=== PATIENT | female | born 1965 | race Caucasian/White ===

== ENCOUNTER 2018-01-08 08:00 | Outpatient (CLI) | payer OTHER | END 2018-01-08 08:01 | disposition home or self-care (01) | LOC: LAB.R 08:00 | PROVIDERS: ATTEND Physician Assistant Medical | DX: N39.0 Urinary tract infection, site not specified (principal) | CPT/HCPCS: 87086; 87181 ==

== ENCOUNTER 2018-02-11 21:02 | Outpatient (CLI) | payer OTHER ==
--- NOTE | 2018-02-12 11:07 | Ultrasound Report ---
Procedure Date: 02/11/2018 Accession Number: [id number] / [id number] Procedure: US - Retroperitoneal CPT Code: FULL RESULT: EXAM: Retroperitoneal DATE: 02/11/2018 9:38 PM CLINICAL HISTORY: CHRONIC UTI COMPARISON: None. TECHNIQUE: Real-time scanning was performed with static images obtained. FINDINGS: Right Kidney: 9.4 x 4.7 x 4.4 cm. There are small echogenic foci in the right collecting system, measuring 4 mm in the upper pole and 3 mm in the lower pole, suspicious for small calculi. No hydronephrosis. Left Kidney: 10.1 x 4.6 x 4.4 cm. Normal echotexture with no stones, contour-deforming masses, or hydronephrosis.] Bladder: Bilateral jets seen. The prevoid bladder volume was 332 cc. The postvoid bladder volume was 2 cc. IMPRESSION: Possible small right renal calculi. No hydronephrosis. No significant post void residual. RADIA
== END 2018-02-11 21:03 | disposition home or self-care (01) ==
LOC: DI 21:02
PROVIDERS: ATTEND Physician Assistant Medical
DX: N39.0 Urinary tract infection, site not specified (principal)
CPT/HCPCS: 76770

== ENCOUNTER 2018-03-06 08:42 | Outpatient (CLI) | payer OTHER ==
[2018-03-06 09:10] LABS: BASOPHILS % (AUTO) 1.2 %; EOSINOPHILS % (AUTO) 1.3 %; HGB - HEMOGLOBIN 14.1 g/dL (12.0-16.0); LYMPHOCYTES # (AUTO) 1.5 10^3/uL (1.5-3.5); LYMPHOCYTES % (AUTO) 41.7 %; MEAN CORPUSCULAR HEMOGLOBIN 30.5 pg (27.0-31.0); MEAN CORPUSCULAR VOLUME 89.7 fL (81.0-99.0); MEAN PLATELET VOLUME 8.5 fL (7.9-10.8); MONOCYTES # (AUTO) 0.3 10^3/uL (0.0-1.0); MONOCYTES % (AUTO) 9.6 %; NEUTROPHILS # (AUTO) 1.7 10^3/uL (1.5-6.6); NEUTROPHILS % (AUTO) 46.2 %; PLT - PLATELET COUNT 211 10^3/uL (130-450); RED BLOOD COUNT 4.63 10^6/uL (4.20-5.40); RED CELL DISTRIBUTION WIDTH 13.7 % (12.0-15.0); WHITE BLOOD COUNT 3.6 x10^3/uL (4.8-10.8)
[2018-03-06 09:35] LABS: ALBUMIN 4.4 g/dL (3.2-5.5); ALBUMIN/GLOBULIN RATIO 1.5 (1.0-2.2); ALKALINE PHOSPHATASE 51 IU/L (42-121); ALT ALANINE AMINOTRANSFERASE 16 IU/L (10-60); AST ASPARTATE AMINOTRANSFERASE 20 IU/L (10-42); BILIRUBIN,TOTAL 1.2 mg/dL (0.2-1.0); BUN - BLOOD UREA NITROGEN 11 mg/dL (6-20); CARBON DIOXIDE - CO2 26 mmol/L (21-32); CHLORIDE 102 mmol/L (101-111); CHOL/HDL RATIO 2.7 (<4.4); CHOLESTEROL 255 mg/dL; CREATININE 0.7 mg/dL (0.4-1.0); GFR - MDRD 87 (>89); GLUCOSE 104 mg/dL (70-100); HDL CHOLESTEROL 95 mg/dL; LDL CHOLESTEROL,CALCULATED 150 mg/dL; LDL/HDL RATIO 1.6 (<4.4); SODIUM 136 mmol/L (135-145); TOTAL PROTEIN 7.3 g/dL (6.7-8.2); VLDL CHOLESTEROL 10 mg/dL
[2018-03-06 10:12] LABS: CA 125 13.2 U/mL (0.0-35.0)
[2018-03-06 10:16] LABS: THYROID STIMULATING HORMONE 1.2 uIU/mL (0.34-5.60)
[2018-03-07 13:17] LABS: HEPATITIS C ANTIBODY NON-REACTIVE (NON-REACTIVE)
== END 2018-03-06 08:43 | disposition home or self-care (01) ==
LOC: LAB 08:42
PROVIDERS: ATTEND Physician Assistant Medical
DX: Z00.00 Encounter for general adult medical examination without abnormal findings (principal); E55.9 Vitamin D deficiency, unspecified; Z79.899 Other long term (current) drug therapy; Z13.818 Encounter for screening for other digestive system disorders; Z80.3 Family history of malignant neoplasm of breast; R14.0 Abdominal distension (gaseous); R10.9 Unspecified abdominal pain
CPT/HCPCS: 36415; 80053; 80061; 82306; 83721; 84443; 85025; 86304; 86803

== ENCOUNTER 2018-03-07 20:27 | Outpatient (CLI) | payer OTHER ==
--- NOTE | 2018-03-08 16:27 | Ultrasound Report ---
Procedure Date: 03/07/2018 Accession Number: [id number] / [id number] Procedure: US - Pelvic w/Transvaginal CPT Code: FULL RESULT: EXAM: Pelvic w/Transvaginal DATE: 03/07/2018 9:20 PM CLINICAL HISTORY: ABD CRAMPS,FAMILY HX OF FEMALE BRST CA,BLOATING COMPARISON: None. TECHNIQUE: Realtime transabdominal imaging performed to identify the uterus and adnexa and as an overview of other pelvic structures, followed by transvaginal imaging for better assessment of the endometrium and/or adnexa, with static image documentation. FINDINGS: Uterus: 10.2 x 4.7 x 6 cm, volume 150 cc. Anteverted position. Normal overall size and echotexture. Masses: Multiple fibroids the largest width is intramural in the fundus and measures 2.5 x 2.4 x 2.1 cm. Endometrium: 9 mm. With focal echogenic 0.7 x 0.4 x 0.6 cm area without evidence of vascularity on color Doppler. Abnormally thick in the postmenopausal state. Cervix: Fluid is noted in the endocervical canal. Right Ovary/Adnexa: 1.9 x 1.5 x 1.4 cm, volume to cc. Normal echotexture. Blood flow is present. No adnexal mass is seen. Left Ovary/Adnexa: 4 x 1.8 x 3.1 cm, volume 11.6 cc. Normal echotexture. Blood flow is present. There are 2 subcentimeter simple appearing cysts. Free Fluid: None. Other: None. IMPRESSION: Thickened endometrium and fluid in the endocervical canal warrant clinical workup and possible sonohysterogram in a postmenopausal patient. There are 2 subcentimeter simple appearing cysts in the left ovary which are considered normal in a premenopausal patient. In the postmenopausal patient, these require annual ultrasound follow-up. RADIA
== END 2018-03-07 20:28 | disposition home or self-care (01) ==
LOC: DI 20:27
PROVIDERS: ATTEND Physician Assistant Medical
DX: R10.9 Unspecified abdominal pain (principal); R14.0 Abdominal distension (gaseous); Z80.3 Family history of malignant neoplasm of breast; N83.202 Unspecified ovarian cyst, left side
CPT/HCPCS: 76830; 76856

== ENCOUNTER 2018-10-28 08:00 | Outpatient (CLI) | payer OTHER | END 2018-10-28 23:59 | disposition home or self-care (01) | LOC: LAB.R 08:00 | PROVIDERS: ATTEND Family Medicine | DX: N39.0 Urinary tract infection, site not specified (principal) | CPT/HCPCS: 87086; 87181 ==

== ENCOUNTER 2018-12-04 08:54 | Outpatient (CLI) | payer BC, OTHER ==
--- NOTE | 2018-12-04 11:11 | Mammography Report ---
Reason: FAMILY HISTORY OF FEMALE BREAST CANCER IN 1ST DEG Procedure Date: 12/04/2018 Accession Number: [id number] / [id number] Procedure: LUPE - Screening Mammo Dig w/Implants CPT Code: FULL RESULT: EXAM: Screening Mammo Dig w/Implants DATE: 12/04/2018 9:33 AM CLINICAL HISTORY: Routine screening. Mother and sister with breast cancer. TECHNIQUE: (B) - Bilateral CC and MLO views were obtained. Additional implant displaced views are also obtained. COMPARISON: 03/28/2013 PARENCHYMAL PATTERN: (D) - The breasts demonstrate heterogeneously dense fibroglandular parenchyma bilaterally. FINDINGS: Bilateral implants are present. There are no suspicious masses, calcifications, or areas of distortion. IMPRESSION: Negative examination. BI-RADS category 1. RECOMMENDATION: (ANNUAL) - Recommend routine annual screening mammography. BI-RADS CATEGORY: (1) - Negative. STANDARD QUALIFYING STATEMENTS: 1. This examination was not reviewed with the aid of Computer-Aided Detection (CAD). 2. A negative or benign imaging report should not preclude biopsy if clinically suspicious findings are present. 3. Dense breasts may obscure an underlying neoplasm. 4. This examination was reviewed with the aid of 3D breast imaging (tomosynthesis).
== END 2018-12-04 08:55 | disposition home or self-care (01) ==
LOC: DI 08:54
PROVIDERS: ATTEND Family Medicine
DX: Z12.31 Encounter for screening mammogram for malignant neoplasm of breast (principal); Z80.3 Family history of malignant neoplasm of breast
CPT/HCPCS: 77067

== ENCOUNTER 2018-12-23 08:53 | Outpatient (CLI) | payer BC, OTHER ==
--- NOTE | 2018-12-23 13:36 | XRAY Report ---
Reason: TENDON DISORDER OF LT RT HAND Procedure Date: 12/23/2018 Accession Number: [id number] / [id number] Procedure: XR - Wrist 2 View BILAT CPT Code: FULL RESULT: EXAMS: 1. Right Wrist Radiography 2. Left Wrist Radiography EXAM DATE: 12/23/2018 09:44 AM. CLINICAL HISTORY: TENDON DISORDER OF LT RT HAND. COMPARISON: None. TECHNIQUE: 2 views each wrist. FINDINGS: Right: Bones: Normal. No fractures or bone lesions. Joints: First metacarpocarpal joint space osteophytes, joint space narrowing, subchondral sclerosis. Soft Tissues: Normal. No soft tissue swelling. Left: Bones: Cysts in the lunate Joints: First metacarpocarpal joint space osteophytes, joint space narrowing, subchondral sclerosis.. Soft Tissues: Normal. No soft tissue swelling. IMPRESSION: DJD bilateral first metacarpocarpal joint space RADIA
== END 2018-12-23 08:54 | disposition home or self-care (01) ==
LOC: DI 08:53
PROVIDERS: ATTEND Family Medicine
DX: M18.0 Bilateral primary osteoarthritis of first carpometacarpal joints (principal)

== ENCOUNTER 2019-01-13 07:49 | Outpatient (CLI) | payer BC, OTHER ==
[2019-01-13] MEDS ORDERED: IOVERSOL 320 50 ML VIAL ONE (08:23)
[2019-01-13] MEDS ORDERED: IOVERSOL 320 100 ML VIAL IVP ONE ×2 (08:24→11:08)
--- NOTE | 2019-01-13 10:20 | CT Report ---
Reason: ABDOMINAL PAIN,LOWER Procedure Date: 01/13/2019 Accession Number: [id number] / [id number] Procedure: CT - Abdomen/Pelvis W CPT Code: FULL RESULT: EXAM: CT ABDOMEN AND PELVIS EXAM DATE: 01/13/2019 09:35 AM. CLINICAL HISTORY: LEFT LOWER QUADRANT ABDOMINAL PAIN. COMPARISONS: None. TECHNIQUE: Routine helical CT imaging was performed through the abdomen and pelvis. IV contrast: . Enteric contrast: No. Reconstructions: Coronal and sagittal. In accordance with CT protocol optimization, one or more of the following dose reduction techniques were utilized for this exam: automated exposure control, adjustment of mA and/or KV based on patient size, or use of iterative reconstructive technique. FINDINGS: Lung Bases: Unremarkable. Liver: Normal. No masses. Gallbladder/Bile Ducts: Unremarkable. Spleen: Normal. Pancreas: Normal. Adrenal Glands: Normal. Kidneys: Normal. No masses or hydronephrosis. Peritoneal Cavity/Bowel: Normal. No free fluid, free air or adenopathy. No masses or acute inflammatory process. The appendix is not visualized, but there are no secondary signs of appendicitis. No evidence of diverticulosis. Pelvic Organs: There is an approximate 6 x 7 cm diameter left adnexal mass. No other soft tissue abnormality. 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 Bones: No significant abnormality. Other: No evidence of hernia. IMPRESSION: 1. There is an approximate 7 cm maximal diameter left adnexal mass. Differential diagnosis includes left-sided exophytic uterine fibroid and adnexal neoplasm. Consider pelvic ultrasound for further evaluation. 2. 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 This is a common anatomic finding, but is also associated with pelvic venous congestion syndrome. 3. Otherwise negative examination. RADIA
[2019-01-13] MEDS ORDERED: IOVERSOL 320 50 ML VIAL PO ONE (11:08)
== END 2019-01-13 07:50 | disposition home or self-care (01) ==
LOC: DI 07:49
PROVIDERS: ATTEND Internal Medicine Gastroenterology
DX: R19.04 Left lower quadrant abdominal swelling, mass and lump (principal); R10.30 Lower abdominal pain, unspecified
CPT/HCPCS: 74177; Q9967

== ENCOUNTER 2019-01-16 07:59 | Outpatient (CLI) | payer BC, OTHER ==
--- NOTE | 2019-01-16 10:01 | Ultrasound Report ---
Reason: ADNEXAL MASS,LEFT,ABDOMINAL PAIN,LOWER Procedure Date: 01/16/2019 Accession Number: [id number] / [id number] Procedure: US - Pelvic w/Transvaginal CPT Code: FULL RESULT: EXAM: PELVIC ULTRASOUND EXAM DATE: 01/16/2019 09:26 AM. CLINICAL HISTORY: Left lower quadrant abdominal/pelvic pain. Adnexal mass identified on recent CT scan. COMPARISON: CT 01/13/2019. TECHNIQUE: Realtime transabdominal pelvic scan performed to identify the uterus and adnexa and as an overview of other pelvic structures, followed by transvaginal scan to provide greater detail of the uterus and adnexa, with static image documentation. FINDINGS: Uterus: 9.2 x 4.1 x 5.5 cm, volume 108 cc. There is a broad-based left subserosal fibroid measuring 5 x 4 x 5 cm diameter, which correlates with the recent CT findings. Masses: See above Endometrium: 3.2 mm. Normal. Cervix: Unremarkable. Right Ovary: 2.1 x 1.2 x 1.7 cm, volume 3.3 cc. Normal echotexture and blood flow. Left Ovary: 2.7 x 1.3 x 1.8 cm, volume 2.3 cc. Normal echotexture and blood flow. Free Fluid: None. Other: None. IMPRESSION: 1. The recently described right adnexal mass on CT scan represents a broad-based exophytic left subserosal fibroid measuring 5 cm maximal diameter. No further workup required. 2. Otherwise negative examination. RADIA
== END 2019-01-16 08:00 | disposition home or self-care (01) ==
LOC: DI 07:59
PROVIDERS: ATTEND Internal Medicine Gastroenterology
DX: D25.2 Subserosal leiomyoma of uterus (principal)
CPT/HCPCS: 76830; 76856

== ENCOUNTER 2019-01-23 11:55 | Outpatient (CLI) | payer BC, OTHER ==
[2019-01-23 22:39] LABS: CANDIDA GROUP DNA NEGATIVE (NEGATIVE); CANDIDA KRUSEI DNA NEGATIVE (NEGATIVE); TRICHOMONAS VAGINALIS DNA NEGATIVE (NEGATIVE)
== END 2019-01-23 23:59 | disposition home or self-care (01) ==
LOC: LAB.R 11:55
PROVIDERS: ATTEND Obstetrics & Gynecology
DX: R10.2 Pelvic and perineal pain (principal)
CPT/HCPCS: 87491; 87591; 87661; 87801

== ENCOUNTER 2019-03-04 13:24 | Outpatient (CLI) | payer BC, OTHER | END 2019-03-04 23:59 | disposition home or self-care (01) | LOC: LAB.R 13:24 | PROVIDERS: ATTEND Family Medicine | DX: N39.0 Urinary tract infection, site not specified (principal) | CPT/HCPCS: 87086 ==

== ENCOUNTER 2019-04-08 09:22 | Outpatient (CLI) | payer BC, OTHER ==
[2019-04-08 10:06] LABS: BASOPHILS % (AUTO) 0.8 %; EOSINOPHILS % (AUTO) 0.8 %; HGB - HEMOGLOBIN 13.9 g/dL (12.0-16.0); LYMPHOCYTES # (AUTO) 1.7 10^3/uL (1.5-3.5); LYMPHOCYTES % (AUTO) 35.3 %; MEAN CORPUSCULAR HEMOGLOBIN 30.6 pg (27.0-31.0); MEAN CORPUSCULAR HGB CONC 34.4 g/dL (32.0-36.0); MEAN PLATELET VOLUME 10.4 fL (7.9-10.8); MONOCYTES # (AUTO) 0.4 10^3/uL (0.0-1.0); NEUTROPHILS # (AUTO) 2.7 10^3/uL (1.5-6.6); NEUTROPHILS % (AUTO) 54.9 %; PLT - PLATELET COUNT 238 10^3/uL (130-450); RED BLOOD COUNT 4.54 10^6/uL (4.20-5.40); RED CELL DISTRIBUTION WIDTH 12.3 % (12.0-15.0); WHITE BLOOD COUNT 4.9 x10^3/uL (4.8-10.8)
== END 2019-04-08 09:23 | disposition home or self-care (01) ==
LOC: LAB 09:22
PROVIDERS: ATTEND Obstetrics & Gynecology
DX: R19.09 Other intra-abdominal and pelvic swelling, mass and lump (principal); R10.2 Pelvic and perineal pain; R30.0 Dysuria
CPT/HCPCS: 36415; 85025; 86850; 86870; 86900; 86901; 86920; 86922

== ENCOUNTER 2019-04-09 06:13 | Day surgery (SDC) | payer BC, OTHER ==
--- NOTE | 2019-04-08 15:15 | HISTORY & PHYSICAL EXAMINATION ---
HPI - History of Present Illness HPI Comment/Other: CC: Pre-Op Visit HPI: Pt is here today for her pre-op consult ...................................................................BARB Moon April 04, 2019 9:05 AM Ms Gruber is a 53 yo --> 2 here for prep assessment fr [facility] for uterine mass and pelvic pain. Temi was last seen in clinic on 01/23/2019. At that time she reported the following: ngoing issues with bloating and pain over the last 12 months, with symptoms becoming more intense in the last 4-5 months. Painis constant and feels similar to menstrual cramping. Has had pain with intercourse in the last 4-5 months, mostly deep dyspareunia. Had some spotting 3 weeks and 6 months ago. Pain can also feel like electrical current or twisting. She had a CT scan and pelvic us. CT scan showed a 6-7 cm left adnexal mass vs fibroid and an "incompetent ovarian vein". No LAD or free fluid. US showed a broad based subserosal exophytic fibroid measuring 5 cm in greatest diameter and an EMS 3.2 mm. No abnl pap, last screen 2 yrs ago. No STIs Emergent at 30 weeks He has been managing her symptoms expectantly with anti-inflammatories. She continues to be symptomatic and wants to proceed with Hysterectomy. Given her history of prior and the possibility of adhesive disease due to lingering endometriosis, recommend a laparoscopic approach. She presents for preop evaluation. No changes in health history since time of prior exam Risk Factors: Smoked Tobacco Use: Never smoker Smokeless Tobacco Use: Never Passive Smoke Exposure: no HIV High Risk Behavior: no Caffeine Use: 2 drinks per day Exercise: yes Times/wk: 4 Type of Exercise: Run/ Walking Seatbelt Use: 100 % Sun Exposure: rarely No Dietary Counseling Reason: no Alcohol Use: yes Type: Beer Drinks per day: <1 CAGE Has patient -- [place] need to cut down: no Been annoyed by complaints: no [place] guilty about drinking: no Needed eye glassware maker in the morning: no Drug Use: no Vital Signs: Patient Profile: 53 Years Old Female Height: 63.5 inches (161.2 cm) Weight: 120 pounds BMI: 21.00 Resp: 16 per minute BP sittin / 80 Cuff size: regular Vitals Entered By: BARB Moon (April 04, 2019 9:05 AM) Meds Reviewed: Done Allergies Reviewed: Done Past Medical History: strong family hx of breast cancer Osteoarthritis UTI Recurrent Past Surgical History: Fractured Nose repair D&C -second trimester demise emergency c section rogelio ( January 1990 ) [employer]AD Review of Systems ROS Comments: As per HPI, otherwise remaining systems are negative. Physical Constitutional: alert, no acute distress, well hydrated, well developed. Skin: normal turgor, normal color, no rashes. Head: atraumatic, normocephalic. Neck: supple, no adenopathy. Cardiovascular: RRR, no murmurs. Respiratory: no respiratory distress, clear to auscultation. Abdomen: nondistended, nontender. prior C/S scar. Spine: no deformities. Extremities: no deformities. Neurologic: normal. Psych: affect and mood appropriate, normal interaction, good eye contact. Vulva: see pror exam WNL: Uterus: fibroids, tender Palpable mass in LLQ, TTP. Otherwise small and mobile Impression & Recommendations: Problem # 1: Preop exam (ICD-V72.84) (JLQ67-F56.818) Orders: PRE OP -[id number] (CPT-76703) Temi has been going undergoing expectant management for ongoing pelvic pain with a palpable fibroid. She wants to proceed with hysterectomy. Given her history of prior and the high likelihood of having some endometriosis/inflammatory changes, I recommend proceeding with laparoscopic approach. She was we discussed the risk benefits and alternatives to laparoscopic assisted vaginal hysterectomy. Discussed that all surgical procedures carry risks of bleeding infection and damage to nearby tissue and organs. Discussed risk of bleeding. She consented to potential blood transfusion. We discussed the relatively low risk of HIV transmission is 1 and 2 million nationwide, hepatitis is 1 and 1 million nationwide. We also discussed the r isks of transfusion reaction. In terms of infection she denied history of allergy to antibiotics will provide cefazolin 2 g IV prior to incision. We also discussed the risks of damage nearby tissue and organs and how that may complicate her postoperative care. Fully cognizant of all the risks, Mrs. Gruber consented to the procedure. This included consent to LAV, possible conversion to open, possible oophorectomy Scheduled for procedure on April 09, 2019. Current Allergies: MACROBID (NITROFURANTOIN MONOHYD MACRO) (Critical) CODEINE (Critical) Current Meds: CIPROFLOXACIN HCL 500 MG ORAL TABLET (CIPROFLOXACIN HCL) Take one tablet by mouth twice daily for; Route: ORAL NAPROXEN 500 MG ORAL TABLET (NAPROXEN) Take one tablet by mouth every 12 hours.; Route: ORAL D-MANNOSE CAPSULE (D-MANNOSE CAPS) Take two tablets by mouth daily PROBIOTIC DAILY ORAL CAPSULE (PROBIOTIC PRODUCT) Take one tablet by mouth daily; Route: ORAL VITAMIN D3 5000 UNIT ORAL CAPSULE (CHOLECALCIFEROL) Take one tablet by mouth daily; Route: ORAL MULTI-VITAMIN DAILY ORAL TABLET (MULTIPLE VITAMIN) Take one tablet by mouth daily; Route: ORAL PMH/PSH - Past Medical History Cardiovascular: positive: None Respiratory: positive: None Endocrine/Autoimmune: positive: None GI: positive: None : positive: Other HEENT: positive: Other Psych: positive: Claustrophobia Musculoskeletal: positive: Osteoarthritis Derm: positive: None MRSA Hx?: No - Past Surgical History /VISUAL DESIGN LEAD: positive: section HEENT: Meds/Allgy - Home Medications Home Medications: Ambulatory Orders Medication Instructions Recorded Confirmed D-Mannose [Mannxtra] 2 cap PO DAILY 04/04/19 04/04/19 Lactobacillus Acidophilus 1 each PO DAILY 04/04/19 04/04/19 [Probiotic Acidophilus] Multivitamin [Multiple Vitamins] 1 each PO DAILY 04/04/19 04/04/19 Naproxen 500 mg PO BID PRN 04/04/19 04/04/19 - Allergies Allergies/Adverse Reactions: Allergies Allergy/AdvReac Type Severity Reaction Status Date / Time nitrofurantoin Allergy severe Verified 04/04/19 11:39 [From Macrobid] skin irritation codeine AdvReac lethargic Verified 04/04/19 11:39
[2019-04-09] MEDS ORDERED: ONDANSETRON 4 MG/2 ML VIAL IVP ONE (06:14)
[2019-04-09] MEDS ORDERED: ePHEDrine 50 MG/ML VIAL IVP ONE (06:14)
[2019-04-09] MEDS ORDERED: LIDOCAINE-MPF 2% 5 ML VIAL IM ONE (06:14)
[2019-04-09] MEDS ORDERED: HYDROmorphone 1 MG/ML CARPUJECT IVP ONE (06:14)
[2019-04-09] MEDS ORDERED: ACETAMINOPHEN 1,000 MG/100 ML 100 ML IV ONE ×2 (06:14→06:28)
[2019-04-09] MEDS ORDERED: fentaNYL 250 MCG/5 ML VIAL IVP ONE (06:14)
[2019-04-09] MEDS ORDERED: ROCURONIUM 50 MG/5 ML VIAL IVP ONE (06:14)
[2019-04-09] MEDS ORDERED: KETOROLAC 30 MG/ML VIAL IVP ONE (06:14)
[2019-04-09] MEDS ORDERED: MIDAZOLAM 2 MG/2 ML VIAL IVP ONE (06:14)
[2019-04-09] MEDS ORDERED: PROPOFOL 200 MG/20 ML VIAL IVP ONE (06:14)
[2019-04-09] MEDS ORDERED: DEXAMETHASONE 4 MG/ML VIAL IVP ONE (06:14)
[2019-04-09] MEDS ORDERED: CEFAZOLIN SODIUM IN 0.9 % NACL 2 GM/100 ML BAG IV ONE (06:27)
[2019-04-09] MEDS ORDERED: CELECOXIB 100 MG CAPSULE PO ONE (06:28)
[2019-04-09] MEDS ORDERED: GABAPENTIN 400 MG CAPSULE ONE (06:29)
[2019-04-09] MEDS ORDERED: LACTATED RINGERS 1,000 ML IV ONE ×3 (07:07→12:08)
--- NOTE | 2019-04-09 07:12 | ANESTHESIA ---
Pre-Anesthesia VS, & Labs - Diagnosis Uterine mass and pelvic pain - Procedure [facility] Vital Signs: Temp Pulse Resp BP Pulse Ox 36.7 C 70 16 138/83 H 99 04/09/19 06:45 04/09/19 06:45 04/09/19 06:45 04/09/19 06:45 04/09/19 06:45 Height 5 ft 4 in Weight (kg) 54.7 kg Body Mass Index 20.0 - NPO >8 hours - Is Patient ?: No Home Medications and Allergies Home Medications: Ambulatory Orders D-Mannose [Mannxtra] 2 cap PO DAILY 04/04/19 Lactobacillus Acidophilus [Probiotic Acidophilus] 1 each PO DAILY 04/04/19 Multivitamin [Multiple Vitamins] 1 each PO DAILY 04/04/19 Naproxen 500 mg PO BID PRN 04/04/19 D-Mannose [Mannxtra] 2 cap PO DAILY 04/04/19 Lactobacillus Acidophilus [Probiotic Acidophilus] 1 each PO DAILY 04/04/19 Multivitamin [Multiple Vitamins] 1 each PO DAILY 04/04/19 Naproxen 500 mg PO BID PRN 04/04/19 Allergies/Adverse Reactions: Allergies Allergy/AdvReac Type Severity Reaction Status Date / Time nitrofurantoin Allergy severe Verified 04/04/19 11:39 [From Macrobid] skin irritation codeine AdvReac lethargic Verified 04/04/19 11:39 Anes History & Medical History - Anesthetic History Anesthesia Complications: reports: Slow wake-up - Medical History Cardiovascular: reports: None Pulmonary: reports: None Gastrointestinal: reports: None Urinary: reports: None, Other Neuro: reports: None Musculoskeletal: reports: Osteoarthritis Endocrine/Autoimmune: reports: None Blood Disorders: reports: None Skin: reports: None Smoking Status: Never smoker Psychosocial: reports: Alcohol (4 drinks per week) - Surgical History Eyes Ears Nose Throat (EENT): Rhinoplasty (2008) Gynecologic: section Exam General: Alert, Oriented x3, Cooperative, No acute distress Dental: WNL Mouth Openin Fingerbreadth Neck Mobility: Normal Mallampati classification: I Thyromental Distance: 4-6 cm Respiratory: Lungs clear, Normal breath sounds, No respiratory distress, No accessory muscle use Cardiovascular: Regular rate, Normal S1, Normal S2, No murmurs Mental/Cognitive Status: Alert/Oriented X3, Normal for patient Plan Anesthesia Type: General Consent for Procedure(s) Verified and Reviewed: Yes Code Status: Attempt Resuscitation ASA classification: 1-Healthy patient Is this case an emergency?: No
[2019-04-09] MEDS ORDERED: METHYLENE BLUE 0.5% 50 MG/10 ML AMPULE ONE (07:24)
[2019-04-09] MEDS ORDERED: BUPIVACAINE 0.25%-EPI 1:200000 PF 30 ML VIAL ONE (07:24)
[2019-04-09] MEDS ORDERED: VASOPRESSIN 20 UNIT/ML VIAL ONE (07:26)
[2019-04-09] MEDS ORDERED: BUPIVACAINE 0.25%-EPI 1:200000 PF 10 ML VIAL SUBQ ONE ×2 (08:26)
[2019-04-09] MEDS ORDERED: METHYLENE BLUE 0.5% 50 MG/10 ML AMPULE IR ONE (08:58)
[2019-04-09] MEDS ORDERED: HYDROmorphone 0.5 MG/0.5 ML SYRINGE IVP PRN (11:18)
[2019-04-09] MEDS ORDERED: ACETAMINOPHEN 325 MG TABLET PO PRN (11:18)
[2019-04-09] MEDS ORDERED: oxyCODONE 5 MG TABLET PO PRN (11:18)
[2019-04-09] MEDS ORDERED: SODIUM CHLORIDE FLUSH 0.9% 10 ML SYRINGE IVP PRN (11:18)
--- NOTE | 2019-04-09 11:25 | OPERATIVE REPORT ---
Operative Report - General Planned Procedure: Laparoscopic Assisted Vaginal Hysterectomy and bilateral salpingectomy Pre-Op Diagnosis: Pelvic pain and adnexal mass vs fibroid Procedure Performed: Laparoscopic assited vaginal hysterectomy and bilateral salpingectomy Post Op Diagnosis: Pelvic pain; no adnexal mass/fibroid appreciated - Procedure Note Primary Surgeon: Nova Foss MD Secondary Surgeon: Jose Miguel Thakkar MD Anesthesia Technique: General ET tube Pathology: Uterus with cervix and bilateral fallopian tubes IV Fluids (mL): 1,300 Estimated Blood Loss (mL): 50 Urine Output (mL): 400 Indications: Pelvic pain and adnexal mass with failed medical management Findings: Normal appearing uterus, fallopian tubes, and ovaries. Normal appendix. Thickened, pale liver edge Complications: None - Other Other Information/Narrative: Risks benefits and alternatives of the procedure were reviewed. Consent was again confirmed. Patient was brought to the operating room and underwent general anesthesia. She was placed in dorsal lithotomy position with legs resting in yellowfin stirrups. SCDs were in place and activated. Cefazolin 2 g IV was administered prior to start of procedure. She was prepped and draped in the usual sterile fashion. Surgical timeout was performed. Bimanual exam was performed. Sterile speculum was placed and Vcare uterine manipulator was placed, confirming that the inner cup was flush with the vaginal fornices. The base of the umbilicus wasanesthetized with intradermal injection of 0.25% Marcaine. A 5 mm skin incision was made with a scalpel. A 5 mm blunt trocar was inserted under direct visualization using Visiport. Once the port was confirmed to be placed intraperitoneally, the abdomen was insufflated to 15 mmHg with CO2 gas Exploration of the abdomen and pelvis was confirmed that no injury was sustained with placement of the trocar. Two additional 5 mm ports were placed in the right and left lower quadrants, taking care to avoid the epigastric arteries, while under direct visualization via laparoscopic guidance. The abdomen was explored with the laparoscope, with findings as noted. The right Fallopian tube was grasped and elevated and resected from the underlying mesosalpinx with the LigaSure bipolar sealing and cutting device. The uterine ovarian ligament was transected using the LigaSure bipolar device. A bladder flap was mobilized by dividing the round ligaments using the bipolar cutting forceps, and the peritoneum on the vesicouterine fold was incised to mobilize the bladder. Once thecolpotomy ring was skeletonized and in position, the uterine arteries were sealed using the bipolar forceps at the level of the colpotomy ring. This was repeated on the left aspect of the uterus in the same manner. Colpotomy was performed using t he harmonic scalpel, resulting in separation of the uterus and attached tubes. The right tube had been transected and removed separately through a lateral port to improve visualization. The uterus and left tube were then delivered through the vagina. Attention was then turned to the vaginal cuff closure. The abdomen was desufflated and the abdominal surgical field was covered with sterile towels. A weighted speculum was placed in the vagina. Long Allis clamps were used to grasp the edges of the peritoneum. The peritoneum was closed with a running Pursestring suture using 2-0 Vicryl. The uterosacral ligaments were then grasped with long Allis clamps bilaterally. 0 Vicryl suture was used to transfix the uterosacral ligaments and then fix them to the anterior and posterior aspects of the vaginal cuff bilaterally, thus fixing the uterosacral ligaments of the vaginal fornices. The vaginal cuff closure was then closed in a transverse fashion using interrupted [id number] suture using 0 Vicryl. Good hemostasis was noted. We again returned to the abdominal surgical field after removing outer gloves. The abdomen was again insufflated. The vaginal cuff was visualized internally and noted to have good hemostasis. The left lateral pelvic sidewall was raw in appearance but had no active bleeding. In an abundance of caution, Surgicel was applied to the left lateral pelvic sidewall. Good hemostasis was noted. The abdomen was partially desufflated. Pedicles were observed under decreased pressure and good hemostasis was again confirmed. All instruments were removed from the abdomen. Skin was closed with interrupted subcuticular stitches using 4-0 Monocryl. Dermabond was applied over the suture sites. The final sponge needle and instrument counts were correct at completion of the procedure patient was awakened taken to the postanesthesia care unit in stable condition.
--- NOTE | 2019-04-09 12:22 | OPERATIVE REPORT ---
Operative Report - General Procedure Date: 04/09/19
[2019-04-09] MEDS: SODIUM CHLORIDE 0.9% 1,000 ML IV SCH ×2 (12:50→20:09)
[2019-04-09] MEDS: KETOROLAC 30 MG/ML VIAL IVP PRN ×2 (15:59→22:08)
[2019-04-09] MEDS: GABAPENTIN 100 MG CAPSULE PO SCH ×2 (17:16→21:12)
[2019-04-09] MEDS: SODIUM CHLORIDE FLUSH 0.9% 10 ML SYRINGE IVP SCH (17:17)
[2019-04-09] MEDS: ACETAMINOPHEN 500 MG TABLET PO PRN (20:07)
[2019-04-10] MEDS: KETOROLAC 30 MG/ML VIAL IVP PRN (04:11)
[2019-04-10] MEDS: SODIUM CHLORIDE FLUSH 0.9% 10 ML SYRINGE IVP SCH (04:11)
[2019-04-10] MEDS: GABAPENTIN 100 MG CAPSULE PO SCH (04:24)
[2019-04-10] MEDS: SODIUM CHLORIDE 0.9% 1,000 ML IV SCH (05:31)
[2019-04-10 08:13] VITALS: BP 121/76
[2019-04-10] MEDS: ACETAMINOPHEN 500 MG TABLET PO PRN (08:36)
[2019-04-10] MEDS ORDERED: ENOXAPARIN 40 MG/0.4 ML SYRINGE SUBQ SCH (09:00)
[2019-04-10 10:32] LABS: BASOPHILS % (AUTO) 0.4 %; EOSINOPHILS % (AUTO) 0.5 %; HGB - HEMOGLOBIN 11.2 g/dL (12.0-16.0); LYMPHOCYTES # (AUTO) 1.9 10^3/uL (1.5-3.5); LYMPHOCYTES % (AUTO) 22.6 %; MEAN CORPUSCULAR HEMOGLOBIN 31.2 pg (27.0-31.0); MEAN CORPUSCULAR HGB CONC 34.1 g/dL (32.0-36.0); MEAN CORPUSCULAR VOLUME 91.4 fL (81.0-99.0); MEAN PLATELET VOLUME 10.8 fL (7.9-10.8); MONOCYTES # (AUTO) 0.6 10^3/uL (0.0-1.0); MONOCYTES % (AUTO) 6.6 %; NEUTROPHILS # (AUTO) 5.8 10^3/uL (1.5-6.6); NEUTROPHILS % (AUTO) 69.5 %; PLT - PLATELET COUNT 172 10^3/uL (130-450); RED BLOOD COUNT 3.59 10^6/uL (4.20-5.40); RED CELL DISTRIBUTION WIDTH 12.7 % (12.0-15.0); WHITE BLOOD COUNT 8.4 x10^3/uL (4.8-10.8)
== END 2019-04-10 12:30 | disposition home or self-care (01) ==
LOC: SDS 06:13 → MS2 13:30 → SDS 04-10 12:30
PROVIDERS: ATTEND Obstetrics & Gynecology
PROC: 0UT7FZZ Resection of Bilateral Fallopian Tubes, Via Natural or Artificial Opening With Percutaneous Endoscopic Assistance (ICD-10-PCS; 2019-04-09)
PROC: 0UT9FZZ Resection of Uterus, Via Natural or Artificial Opening With Percutaneous Endoscopic Assistance (ICD-10-PCS; principal; 2019-04-09 07:30)
DX: R10.2 Pelvic and perineal pain (principal); D25.2 Subserosal leiomyoma of uterus; N94.12 Deep dyspareunia; I86.2 Pelvic varices; Z80.3 Family history of malignant neoplasm of breast; Z79.1 Long term (current) use of non-steroidal anti-inflammatories (NSAID)
CPT/HCPCS: 36415; 58552; 85025; 86850; 86870; 86900; 86901; 86922; A9270; J0131; J0690; J1170; J1650; J3010; J7120

== ENCOUNTER 2020-07-03 11:00 | Outpatient (CLI) | payer BC, OTHER | END 2020-07-03 23:59 | disposition home or self-care (01) | LOC: LAB.R 11:00 | PROVIDERS: ATTEND Family Medicine | DX: N39.0 Urinary tract infection, site not specified (principal) | CPT/HCPCS: 87086 ==

== ENCOUNTER 2020-07-07 06:48 | Outpatient (CLI) | payer OTHER ==
[2020-07-07 07:32] LABS: BASOPHILS # (AUTO) 0.1 10^3/uL (0.0-0.1); BASOPHILS % (AUTO) 1.1 %; EOSINOPHILS # (AUTO) 0.1 10^3/uL (0.0-0.7); EOSINOPHILS % (AUTO) 1.6 %; HGB - HEMOGLOBIN 14.4 g/dL (12.0-16.0); LYMPHOCYTES # (AUTO) 2.3 10^3/uL (1.5-3.5); LYMPHOCYTES % (AUTO) 53.2 %; MEAN CORPUSCULAR HGB CONC 34.3 g/dL (32.0-36.0); MEAN CORPUSCULAR VOLUME 90.3 fL (81.0-99.0); MONOCYTES # (AUTO) 0.4 10^3/uL (0.0-1.0); MONOCYTES % (AUTO) 8.7 %; NEUTROPHILS # (AUTO) 1.5 10^3/uL (1.5-6.6); NEUTROPHILS % (AUTO) 35.2 %; PLT - PLATELET COUNT 262 10^3/uL (130-450); RED BLOOD COUNT 4.65 10^6/uL (4.20-5.40); RED CELL DISTRIBUTION WIDTH 12.2 % (12.0-15.0); WHITE BLOOD COUNT 4.4 x10^3/uL (4.8-10.8)
[2020-07-07 08:00] LABS: ALBUMIN/GLOBULIN RATIO 1.4 (1.0-2.2); ALKALINE PHOSPHATASE 60 IU/L (42-121); ALT ALANINE AMINOTRANSFERASE 14 IU/L (10-60); AST ASPARTATE AMINOTRANSFERASE 18 IU/L (10-42); BILIRUBIN,TOTAL 0.8 mg/dL (0.2-1.0); BUN - BLOOD UREA NITROGEN 18 mg/dL (6-20); CALCIUM 9.5 mg/dL (8.5-10.3); CARBON DIOXIDE - CO2 28 mmol/L (21-32); CHLORIDE 101 mmol/L (101-111); CHOL/HDL RATIO 2.8 (<4.4); CHOLESTEROL 291 mg/dL; CREATININE 0.7 mg/dL (0.4-1.0); GLUCOSE 109 mg/dL (70-100); HDL CHOLESTEROL 104 mg/dL; LDL CHOLESTEROL,CALCULATED 178 mg/dL; LDL/HDL RATIO 1.7 (<4.4); SODIUM 138 mmol/L (135-145); TOTAL PROTEIN 6.9 g/dL (6.7-8.2); VLDL CHOLESTEROL 9 mg/dL
[2020-07-07 10:31] LABS: HEMOGLOBIN A1c% 5.4 % (4.27-6.07)
== END 2020-07-07 06:49 | disposition home or self-care (01) ==
LOC: LAB 06:48
PROVIDERS: ATTEND Family Medicine
DX: R73.9 Hyperglycemia, unspecified (principal); E78.2 Mixed hyperlipidemia; E55.9 Vitamin D deficiency, unspecified; M19.042 Primary osteoarthritis, left hand; M19.041 Primary osteoarthritis, right hand
CPT/HCPCS: 36415; 80053; 80061; 82306; 83036; 83721; 84443; 85025

== ENCOUNTER 2020-08-08 08:00 | Outpatient (CLI) | payer BC, OTHER ==
[2020-08-08 16:41] LABS: BILIRUBIN,URINE NEGATIVE (NEGATIVE); GLUCOSE, URINE (UA) NEGATIVE (NEGATIVE); KETONES,URINE (UA) NEGATIVE (NEGATIVE); LEUKOCYTE ESTERASE, URINE SMALL (NEGATIVE); NITRITE,URINE NEGATIVE (NEGATIVE); OCCULT BLOOD,URINE MODERATE (NEGATIVE); PH,URINE 7.5 PH (5.0-7.5); PROTEIN,URINE NEGATIVE (NEGATIVE); UROBILINOGEN,URINE 0.2 (NORMAL) E.U./dL (NORMAL)
[2020-08-08 16:48] LABS: CLARITY,URINE HAZY (CLEAR)
[2020-08-08 16:56] LABS: RBC,URINE 0-5 /HPF (0-5); WBC CLUMPS,URINE PRESENT
[2020-08-08 16:57] LABS: BACTERIA,URINE Few /HPF (None Seen); SQUAMOUS EPITHELIAL CELL,UR RARE Squamous (<= Few)
== END 2020-08-08 08:01 | disposition home or self-care (01) ==
LOC: LAB.R 08:00
PROVIDERS: ATTEND Nurse Practitioner
DX: N39.0 Urinary tract infection, site not specified (principal)
CPT/HCPCS: 81001; 87086

== ENCOUNTER 2020-11-01 08:05 | Outpatient (CLI) | payer OTHER ==
[2020-11-01] MEDS ORDERED: IOVERSOL 320 100 ML VIAL IVP ONE ×2 (08:30→09:30)
--- NOTE | 2020-11-01 10:08 | CT Report ---
PROCEDURE: IVP INDICATIONS: GROSS HEMATURIA CONTRAST: IV CONTRAST: Optiray 320 ml: 140 PO CONTRAST: *NO PO CONTRAST TECHNIQUE: After the administration of intravenous contrast, 5 mm thick sections acquired from the diaphragms to the symphysis. 5 mm thick coronal and sagittal reformats were acquired. For radiation dose reducti on, the following was used: automated exposure control, adjustment of mA and/or kV according to [place] ent size. COMPARISON: None. FINDINGS: Image quality: Excellent. Lung bases: Lung bases are clear. Heart size is normal. Urinary system: Both kidneys are normal in size and enhancement. Contrast-filled renal calyces are normal in morphology. Contrast filled portions of both ureters are normal in caliber. Bladder wall thickness is normal. Solid organs: Liver and spleen are normal in size and enhancement. Gallbladder appears normal, part ially contracted. Biliary system is non dilated. Pancreas enhances normally. No adrenal nodules. Peritoneum and bowel: Bowel loops demonstrate normal wall thickness and caliber. No free fluid or a ir. Nodes and vessels: No retroperitoneal or mesenteric adenopathy by size criteria. Aorta and inferior vena cava are normal in size. Abdominal wall: No ventral hernias. Pelvis: No pathologic free pelvic fluid. No inguinal hernias or adenopathy. Bones: No suspicious bony lesions. No vertebral body compression fractures. IMPRESSION: Throughout the urinary tract a obstructive or nonobstructive calculus is not found. No urothelial or renal cortical mass lesion is identified. A definite source of reported gross hematuria is not seen. Reviewed by: Rolando Hilliard MD on 11/01/2020 10:07 AM PDT Approved by: Rolando Hilliard MD on 11/01/2020 10:07 AM PDT Station ID: [id number]
== END 2020-11-01 08:06 | disposition home or self-care (01) ==
LOC: DI 08:05
PROVIDERS: ATTEND Urology
DX: R31.0 Gross hematuria (principal)
CPT/HCPCS: 74178; Q9967

== ENCOUNTER 2020-11-07 07:00 | Outpatient (CLI) | payer OTHER | END 2020-11-07 23:59 | disposition home or self-care (01) | LOC: LAB.R 07:00 | PROVIDERS: ATTEND Physician Assistant Medical | DX: R30.0 Dysuria (principal) | CPT/HCPCS: 87077; 87086; 87181 ==

== ENCOUNTER 2020-12-15 14:36 | Outpatient (CLI) | payer OTHER ==
--- NOTE | 2020-12-16 14:11 | Mammography Report ---
BILATERAL DIGITAL SCREENING MAMMOGRAM 3D/2D WITH AUGMENTATION: 12/15/2020 CLINICAL: Routine screening. Comparison is made to exams dated: 12/04/2018 mammogram - [facility] and 03/28/2013 m ammogram - [facility] [place]. There are scattered fibroglandular elements in both breast s. There is a new irregular asymmetry in the right breast at 6 o'clock anterior depth. No other significant masses, calcifications, or other findings are seen in either breast. IMPRESSION: INCOMPLETE: NEEDS ADDITIONAL IMAGING EVALUATION The new irregular asymmetry in the right breast is indeterminate. Additional views with possible ult rasound are recommended. This exam was interpreted at Station ID: [id number]. NOTE: For mammograms, a report in lay terms will be sent to the patient. Approximately 15% of breast malignancies will not be visualized mammographically. In the management of a palpable breast mass, a negative mammogram must not discourage biopsy of a clinically suspicious lesion. Electronically Signed By: Troy Girard acr/:12/15/2020 15:34:07 ACR BI-RADS Category 0: Incomplete 3340F PARENCHYMAL PATTERN: (A) - The breast(s) demonstrate(s) scattered fibroglandular densities. BI-RADS CATEGORY: (0) - 0 Mammo and [place] [id number] Immediate follow-up LATERALITY: (R)
== END 2020-12-15 14:37 | disposition home or self-care (01) ==
LOC: DI 14:36
DX: Z12.31 Encounter for screening mammogram for malignant neoplasm of breast (principal); R92.8 Other abnormal and inconclusive findings on diagnostic imaging of breast

== ENCOUNTER 2020-12-21 08:00 | Outpatient (CLI) | payer OTHER | END 2020-12-21 23:59 | disposition home or self-care (01) | LOC: LAB.N 08:00 | PROVIDERS: ATTEND Physician Assistant Medical | DX: R30.0 Dysuria (principal) | CPT/HCPCS: 87086 ==

== ENCOUNTER 2021-01-14 12:31 | Outpatient (CLI) | payer OTHER ==
--- NOTE | 2021-01-17 11:45 | Mammography Report ---
UNILATERAL RIGHT DIGITAL DIAGNOSTIC MAMMOGRAM 3D/2D: 01/14/2021 CLINICAL: Patient returns today to evaluate a focal asymmetry in the right breast. Comparison is made to exams dated: 12/15/2020 mammogram, 12/04/2018 mammogram - [facility], and 03/28/[address] mamm[address] - [facility]. There are scattered fibroglandular e lements in right breast. The benign irregular asymmetry in the right breast at 6 o'clock anterior depth is no longer seen. Th is is not seen in additional views. No other significant masses or calcifications are seen in the breast. IMPRESSION: BENIGN There is no mammographic evidence of malignancy. A 1 year screening mammogram is recommended. This exam was interpreted at Station ID: [id number]. NOTE: For mammograms, a report in lay terms will be sent to the patient. Approximately 15% of breast malignancies will not be visualized mammographically. In the management of a palpable breast mass, a negative mammogram must not discourage biopsy of a clinically suspicious lesion. Electronically Signed By: Troy Girard acr/:01/14/2021 13:47:55 ACR BI-RADS Category 2: Benign Finding(s) 3342F PARENCHYMAL PATTERN: (A) - The breast(s) demonstrate(s) scattered fibroglandular densities. BI-RADS CATEGORY: (2) - 2 RECOMMENDATION: (ANNUAL) - Recommend routine annual screening mammography. [id number] 1 year screening LATERALITY: (B)
== END 2021-01-14 12:32 | disposition home or self-care (01) ==
LOC: DI 12:31
PROVIDERS: ATTEND Family Medicine
DX: R92.8 Other abnormal and inconclusive findings on diagnostic imaging of breast (principal)

== ENCOUNTER 2021-12-26 13:22 | Outpatient (CLI) | payer OTHER ==
[2021-12-26 14:03] LABS: THYROID STIMULATING HORMONE 0.64 uIU/mL (0.34-5.60)
[2021-12-26 14:05] LABS: FREE T4 (FREE THYROXINE) 0.85 ng/dL (0.58-1.64)
== END 2021-12-26 13:23 | disposition home or self-care (01) ==
LOC: LAB 13:22
PROVIDERS: ATTEND Internal Medicine
DX: M54.2 Cervicalgia (principal)
CPT/HCPCS: 36415; 84439; 84443

== ENCOUNTER 2021-12-29 14:00 | Outpatient (CLI) | payer OTHER ==
--- NOTE | 2021-12-29 16:22 | Ultrasound Report ---
PROCEDURE: Head or Neck Soft Tissue INDICATIONS: NECK PAIN TECHNIQUE: Real-time scanning was performed of the thyroid gland, with image documentation. COMPARISON: None FINDINGS: Right: Thyroid lobe measures 4.7 x 1 x 1.6 cm, and is homogeneous in echotexture. Left: Thyroid lobe measures 4.2 x 1.1 x 1.5 cm, and is homogenous in echotexture. Isthmus: 2 mm thick. Nodule number: One Location: Lower pole left thyroid lobe. Size: 0.5 x 0.4 x 0.5 cm. Composition: Predominantly solid Echogenicity: Hypoechoic Shape: wider than tall. Margins: Smooth Echogenic foci: Punctate Total points: 6 ACR TI-RADS category: Moderately suspicious. Bilateral submandibular glands are fairly symmetric in size and echotexture. No discrete submandibula r gland mass is seen. Mildly prominent right submandibular node measures 2.1 x 0.7 x 1.5 cm in size i s IMPRESSION: 1. Tiny moderately suspicious left thyroid nodule as described above, suggest ultrasound follow-up [place] following recommendation. 2. Incidentally noted of mildly prominent right submandibular lymph node as above. This is a fairly n onspecific finding. ACR TI-RADS definitions and recommendations: TI-RADS 1 (benign): 0 points. FNA not needed. TI-RADS 2 (not suspicious): 2 points. FNA not needed. TI-RADS 3 (mildly suspicious): 3 points. "FNA if 2.5 cm or larger, follow up if 1.5 cm or larger (at 1, 3, and 5 years). TI-RADS 4 (moderately suspicious): 4-6 points. "FNA if 1.5 cm or larger, follow up if 1 cm or larger (at 1, 2, 3, and 5 years). TI-RADS 5 (highly suspicious): 7 points or more. "FNA if 1 cm or larger, follow up if 0.5 cm or larger (every year for 5 years). Reviewed by: Nehemiah Elder MD on 12/29/2021 4:21 PM PDT Approved by: Nehemiah Elder MD on 12/29/2021 4:21 PM PDT Station ID: [id number]
== END 2021-12-29 14:01 | disposition home or self-care (01) ==
LOC: DI 14:00
PROVIDERS: ATTEND Internal Medicine
DX: E04.1 Nontoxic single thyroid nodule (principal)

== ENCOUNTER 2022-01-10 17:00 | Outpatient (CLI) | payer OTHER ==
--- NOTE | 2022-01-11 11:54 | Ultrasound Report ---
PROCEDURE: Head or Neck Soft Tissue INDICATIONS: LEFT THYROID NODULE TECHNIQUE: Real-time scanning was performed of the thyroid gland, with image documentation. COMPARISON: Thyroid ultrasound 12/29/2021 FINDINGS: Right: Thyroid lobe measures 4.3 x 1.5 x 0.9 cm, and is homogeneous in echotexture. Left: Thyroid lobe measures 4.3 x 1.2 x 1.2 cm, and is homogenous in echotexture. Isthmus: 0.2 cm thick. Nodule number: One Location: Left inferior lateral Size: 0.5 x 0.3 x 0.3 cm. Composition: Predominately solid Echogenicity: Hypoechoic Shape: wider than tall. Margins: Smooth Echogenic foci: Macrocalcification x1. Total points: 5 ACR TI-RADS category: 4, moderately suspicious Small cervical lymph nodes. IMPRESSION: Left inferior thyroid nodule measuring 0.5 cm. TR 4. Follow-up thyroid ultrasound in one year could be considered for this nodule. ACR TI-RADS definitions and recommendations: TI-RADS 1 (benign): 0 points. FNA not needed. TI-RADS 2 (not suspicious): 2 points. FNA not needed. TI-RADS 3 (mildly suspicious): 3 points. "FNA if 2.5 cm or larger, follow up if 1.5 cm or larger (at 1, 3, and 5 years). TI-RADS 4 (moderately suspicious): 4-6 points. "FNA if 1.5 cm or larger, follow up if 1 cm or larger (at 1, 2, 3, and 5 years). TI-RADS 5 (highly suspicious): 7 points or more. "FNA if 1 cm or larger, follow up if 0.5 cm or larger (every year for 5 years). Reviewed by: Terence Martinez MD on 01/11/2022 11:53 AM PDT Approved by: Terence Martinez MD on 01/11/2022 11:53 AM PDT Station ID: [id number]
== END 2022-01-10 17:01 | disposition home or self-care (01) ==
LOC: DI 17:00
PROVIDERS: ATTEND Internal Medicine
DX: E04.1 Nontoxic single thyroid nodule (principal)

== ENCOUNTER 2022-01-20 08:00 | Outpatient (CLI) | payer OTHER | END 2022-01-21 23:59 | disposition home or self-care (01) | LOC: LAB.N 08:00 | PROVIDERS: ATTEND Nurse Practitioner Family | DX: N39.0 Urinary tract infection, site not specified (principal) | CPT/HCPCS: 87086; 87181 ==

== ENCOUNTER 2023-03-22 09:29 | Outpatient (CLI) | payer OTHER ==
[2023-03-22] MEDS ORDERED: ALBUTEROL 1 PUFF INH STA (12:22)
== END 2023-03-22 09:30 | disposition home or self-care (01) ==
LOC: RT 09:29
PROVIDERS: ATTEND Family Medicine
DX: R07.89 Other chest pain (principal)
CPT/HCPCS: 94060; 94729

== ENCOUNTER 2023-03-27 06:56 | Outpatient (CLI) | payer OTHER ==
--- NOTE | 2023-03-27 11:59 | Ultrasound Report ---
PROCEDURE: Carotid Doppler Complete INDICATIONS: CAROTID ATHEROSCLEROSIS TECHNIQUE: Color and pulse Doppler interrogation was performed of both carotid systems, with image documentation and velocity measurements. COMPARISON: None. FINDINGS: Right side: Brachial blood pressure: 123/67 mm Hg. Common carotid artery peak systolic velocity: 84 cm/sec. Internal carotid artery peak systolic velocity: 121 cm/sec. Internal carotid artery end diastolic velocity: 46 cm/sec. External carotid artery peak systolic velocity: 94 cm/sec. ICA/CCA peak systolic ratio: 1.44 . Scruggs scale imaging description: No significant atherosclerotic plaque. Widely patent vessel. Percent internal carotid artery stenosis: No hemodynamically significant stenosis. Vertebral artery: Flow direction is antegrade. Left side: Brachial blood pressure: 118/69 mm Hg. Common carotid artery peak systolic velocity: 103 cm/sec. Internal carotid artery peak systolic velocity: 110 cm/sec. Internal carotid artery end diastolic velocity: 42 cm/sec. External carotid artery peak systolic velocity: 109 cm/sec. ICA/CCA peak systolic ratio: 1.07 . Scruggs scale imaging description: No significant atherosclerotic plaque. Widely patent vessel. Percent internal carotid artery stenosis: No hemodynamically significant stenosis. Vertebral artery: Flow direction is antegrade. IMPRESSION: 1. In the right internal carotid artery, there is no hemodynamically significant stenosis based on pe ak systolic velocity criteria. 2. In the left internal carotid artery, there is no hemodynamically significant stenosis based on pea k systolic velocity criteria. 3. Antegrade blood flow within the right vertebral artery. 4. Antegrade blood flow within the left vertebral artery. The estimate of stenosis included in the report of the imaging study was calculated using the [facility]-end orsed standards of carotid artery stenosis. Reviewed by: Michele Johnson MD on 03/27/2023 11:57 AM PDT Approved by: Michele Johnson MD on 03/27/2023 11:57 AM PDT Station ID: [id number]
== END 2023-03-27 06:57 | disposition home or self-care (01) ==
LOC: DI 06:56
PROVIDERS: ATTEND Family Medicine
DX: I70.8 Atherosclerosis of other arteries (principal)
CPT/HCPCS: 93880

== ENCOUNTER 2023-04-17 14:53 | Outpatient (CLI) | payer OTHER ==
--- NOTE | 2023-04-19 11:22 | Mammography Report ---
BILATERAL DIGITAL SCREENING MAMMOGRAM 3D/2D WITH AUGMENTATION: 04/17/2023 CLINICAL: Routine screening. Family history of breast cancer. Comparison is made to exams dated: 04/20/2022 mammogram, 01/14/2021 mammogram, 12/15/2020 mammogram, 12/04/2018 mammogram - [facility], and 03/28/2013 mammogram - . Both breasts are heterogeneously dense, which may obscure small masses (category c / 51-75% glandular tissue). Bilateral breast implants are stable. No significant masses, calcifications, or other findings are seen in either breast. There has been no significant interval change. IMPRESSION: NEGATIVE There is no mammographic evidence of malignancy. A 1 year screening mammogram is recommended. Based on the Tyrer Cuzick model (a risk assessment model) the patients lifetime risk is 12.0% and he r 10 year risk is 4.7%. According to the ACR, ACS, and NCCN guidelines, an annual breast MRI exam scott ng with mammogram is recommended if the patients lifetime risk is 20% or greater. This exam was interpreted at Station ID: [id number]. NOTE: For mammograms, a report in lay terms will be sent to the patient. Approximately 15% of breast malignancies will not be visualized mammographically. In the management of a palpable breast mass, a negative mammogram must not discourage biopsy of a clinically suspicious lesion. Electronically Signed By: Terence bro/fay:04/18/2023 17:11:42 letter sent: No_Letter ACR BI-RADS Category 1: Negative 3341F PARENCHYMAL PATTERN: (D) - The breast(s) demonstrate(s) heterogeneously dense fibroglandular dada garner. BI-RADS CATEGORY: (1) - 1 Mammogram [id number] 1 year screening LATERALITY: (B)
== END 2023-04-17 14:54 | disposition home or self-care (01) ==
LOC: DI 14:53
PROVIDERS: ATTEND Obstetrics & Gynecology
DX: Z12.31 Encounter for screening mammogram for malignant neoplasm of breast (principal); Z80.3 Family history of malignant neoplasm of breast

== ENCOUNTER 2023-09-14 08:54 | Outpatient (CLI) | payer OTHER ==
--- NOTE | 2023-09-14 12:07 | Ultrasound Report ---
LIMITED ULTRASOUND OF LEFT BREAST: 09/14/2023 CLINICAL: Left breast with implant swollen and hard. Comparison is made to exams dated: 04/17/2023 mammogram, 04/20/2022 mammogram, 01/14/2021 mammogram, an d 12/15/2020 mammogram - [facility]. Color flow ultrasound of the left breast upper inner, lower inner, and and lower outer quadrants reg ions was performed. Scruggs scale images of the real-time examination were reviewed. Patient on antibiotics for clinically suspected mastitis, symptoms improving but not resolved. Due to limited breast tissue and soft tissue hardness with the symptoms, mammography was deferred today. Ultrasound was performed, showing silicone material. No drainable fluid collection or mass. IMPRESSION: INCOMPLETE: NEEDS ADDITIONAL IMAGING EVALUATION Patient on antibiotics for clinically suspected mastitis, symptoms improving but not resolved. Due to limited breast tissue and soft tissue hardness with the symptoms, mammography was deferred today. Ultrasound was performed, showing silicone material. No drainable fluid collection or mass. There is suspected extracapsular silicone on prior mammogram. A diagnostic mammogram is recommended in 1 month or sooner depending on clinical course, with possibl e repeat ultrasound. If mammogram not possible, MRI could also be ordered to further assess for any underlying mass and th e implants. If clinically suspicious skin findings are apparent, a dermatologic consultation and skin biopsy coul d be pursued. This exam was interpreted at Station ID: [id number]. Electronically Signed By: Franki Garsia M.D. lc/:09/14/2023 10:00:59 Ultrasound BI-RADS: 0 Indeterminate BI-RADS CATEGORY: (0) - 0 Mammogram [id number] 1 month follow-up LATERALITY: (B)
== END 2023-09-14 08:55 | disposition home or self-care (01) ==
LOC: DI 08:54
PROVIDERS: ATTEND Physician Assistant Medical
DX: N61.0 Mastitis without abscess (principal)